=== PATIENT | female | born 1985 | race Caucasian/White ===

== ENCOUNTER → 2017-04-25 | Outpatient (CLI) | payer OTHER ==
[2015-01-08 11:05] VITALS: BP 118/79
[~2017-04-25] MED LIST: DEXT10CA10 PO
--- NOTE | 2017-04-26 07:33 | RAD ---
Right index finger, 04/25/2017: History: Pain No fracture or dislocation is identified. No significant arthritic change is evident. The soft tissues are unremarkable. IMPRESSION: No acute abnormality is detected.
== END | disposition home or self-care (01) ==
LOC: PMG 17:08
PROVIDERS: ATTEND Physician Assistant
DX: M79.644 Pain in right finger(s) (principal)
CPT/HCPCS: 73140

== ENCOUNTER 2018-10-18 00:49 | Emergency (ER) | payer OTHER ==
[2018-10-18] MEDS ORDERED: KETOROLAC 30 MG/ML VIAL. ONE (01:05)
[2018-10-18] MEDS ORDERED: MORPHINE SULFATE 4 MG/ML DISP.SYRIN. ONE (01:05)
[2018-10-18] MEDS ORDERED: ONDANSETRON PF 4 MG/2 ML VIAL. ONE (01:05)
--- NOTE | 2018-10-18 01:08 | PHYS DOC ---
Past History Past Medical History: No Pertinent History Past Surgical History: No Surgical History Smoking: Cigarettes Alcohol Use: Occasionally Drug Use: None Adult General HPI HPI Patient is a 33-year-old female presents with sudden onset left flank pain approximately 90 minutes prior to arrival. Some nausea, no vomiting. No previous history of this. No dysuria or hematuria. No fever. No relief with ibuprofen. Pain is severe. Nothing makes it better or worse.[] Review of Systems Review of Systems Constitutional: Denies fever or chills [] Eyes: Denies change in visual acuity, redness, or eye pain [] HENT: Denies nasal congestion or sore throat [] Respiratory: Denies cough or shortness of breath [] Cardiovascular: No chest pain or palpitations[] GI: See history of present illness, no diarrhea or bloody stools[] : Denies dysuria or hematuria, see history of present illness [] Musculoskeletal: Denies back pain or joint pain [] Integument: Denies rash or skin lesions [] Neurologic: Denies headache, focal weakness or sensory changes [] Endocrine: Denies polyuria or polydipsia [] All other systems were reviewed and found to be within normal limits, except as documented in this note. Current Medications Current Medications Current Medications Medications (Trade) Dose Ordered Sig/Shirley Start Time Stop Time Status Last Admin Dose Admin Ketorolac Tromethamine (Toradol 30mg Vial) 30 mg STK-MED ONCE 10/18/18 01:05 10/18/18 01:05 DC Ondansetron HCl (Zofran) 4 mg STK-MED ONCE 10/18/18 01:05 10/18/18 01:05 DC Allergies Allergies Allergies Coded Allergies Type Severity Reaction Last Updated Verified No Known Drug Allergies 01/08/15 No Physical Exam Physical Exam Constitutional: Well developed, well nourished, moderate discomfort, pacing., non-toxic appearance. [] HENT: Normocephalic, atraumatic, bilateral external ears normal, oropharynx moist, no oral exudates, nose normal. [] Eyes: PERRLA, EOMI, conjunctiva normal, no discharge. [] Neck: Normal range of motion, no tenderness, supple, no stridor. [] Cardiovascular:Heart rate regular rhythm, no murmur [] Lungs & Thorax: Bilateral breath sounds clear to auscultation [] Abdomen: Bowel sounds normal, soft, no tenderness, no masses, no pulsatile masses. [] Skin: Warm, dry, no erythema, no rash. [] Back: No tenderness, no CVA tenderness. [] Extremities: No tenderness, no cyanosis, no clubbing, ROM intact, no edema. [] Neurologic: Alert and oriented X 3, normal motor function, normal sensory fu nction, no focal deficits noted. [] Psychologic: Affect normal, judgement normal, mood normal. [] EKG EKG [] Radiology/Procedures Radiology/Procedures PROCEDURE: CT ABDOMEN PELVIS WO CONTRAST CT abdomen and pelvis without contrast. HISTORY: Flank pain CT scan the abdomen and pelvis was done without contrast. Lung bases are clear. There is no pleural effusion a liver lesion is not identified. Spleen and adrenal glands are normal. Pancreas is normal. There are intrarenal calculi in the left kidney with mild medullary calcinosis. There is also calcification the right kidney and renal calculi. There is right hydronephrosis and hydroureter. There is a 4 mm calculus in the distal right ureter. Bowel pattern is normal. Appendix is normal. There is an intrauterine contraceptive device in good position. Uterus and ovaries are normal. IMPRESSION: 1. Bilateral intrarenal calculi and medullary calcinosis. 2. Right hydronephrosis and hydroureter with 4 x 6 mm distal right ureteral calculus. [] Course & Med Decision Making Course & Med Decision Making Pertinent Labs and Imaging studies reviewed. (See chart for details) ED course: Patient arrived, was placed in bed, in tolerated exam well. IV access was established was given IV fluids as well as IV pain medicine and antiemetics because she had an episode of emesis while in the emergency department. She was transported to and from [place] with any complications. After the return of lab and CT findings, these were discussed with the patient who voiced understanding. All questions were answered. She was discharged in improved condition. Medical decision making: Patient appears to have a kidney stone, we will attempt outpatient treatment. There is no evidence of an infected stone, urinary tract infection, nor renal injury. No evidence of other intra-abdominal pathology at this time.[] Dragon Disclaimer Dragon Disclaimer This electronic medical record was generated, in whole or in part, using a voice recognition dictation system. Departure Departure: Impression: Primary Impression: Kidney stone on right side Disposition: HOME, SELF-CARE Condition: IMPROVED Referrals: GEOVANNA DE LOS SANTOS (PCP) Follow-up in 2 days DAVID BOYD Patient Instructions: Diet for Kidney Stones, Kidney Stones Additional Instructions: Drink plenty of fluids. Follow-up with your regular doctor in 2 days. Take medication as prescribed. Return to the ER if worsening pain, unable to tolerate liquids, or any other concerns. Scripts Tamsulosin Hcl (FLOMAX) 0.4 Mg Cap.er.24h 1 CAP PO DAILY for kidney stone, #10 CAP Prov: JOSE ORDOÑEZ DO 10/18/18 Ondansetron Hcl (ZOFRAN) 4 Mg Tablet 1 TAB PO Q6HRS for nausea or vomiting, #20 TAB Prov: JOSE ORDOÑEZ DO 10/18/18 Hydrocodone Bit/Acetaminophen (NORCO 5-325 TABLET) 1 Each Tablet 1 TAB PO Q4-6HRS for severe pain, #20 TAB Prov: JOSE ORDOÑEZ DO 10/18/18 Meloxicam (MELOXICAM) 7.5 Mg Tablet 7.5 MG PO DAILY for PAIN, #20 TAB Prov: JOSE ORDOÑEZ DO 10/18/18 JOSE ORDOÑEZ DO Oct 18, 2018 01:08
[2018-10-18 01:15] LABS: BASO # 0.1 x10^3/uL (0.0-0.2); BASO % 1 % (0-3); EOS % 0 % (0-3); HEMATOCRIT 39.8 % (36.0-47.0); HEMOGLOBIN 13.6 g/dL (12.0-15.5); LYMPH # 3.9 x10^3/uL (1.0-4.8); LYMPH % 36 % (24-48); MEAN CORPUSCULAR HEMOGLOBIN 32 pg (25-35); MEAN CORPUSCULAR HGB CONC 34 g/dL (31-37); MEAN CORPUSCULAR VOLUME 93 fL (79-100); MONO # 0.9 x10^3/uL (0.0-1.1); MONO % 8 % (0-9); NEUT # 5.9 x10^3uL (1.8-7.7); NEUT % 55 % (31-73); PLATELET COUNT 350 x10^3/uL (140-400); RED CELL DISTRIBUTION WIDTH 13.3 % (11.5-14.5); WHITE BLOOD COUNT 10.8 x10^3/uL (4.0-11.0)
[2018-10-18] MEDS ORDERED: ONDANSETRON PF 4 MG/2 ML VIAL. IV ONE (01:15)
[2018-10-18] MEDS ORDERED: IV NORMAL SALINE 1,000ML 1,000 ML IV ONE (01:15)
[2018-10-18] MEDS ORDERED: MORPHINE SULFATE 4 MG/ML DISP.SYRIN. IV ONE (01:15)
[2018-10-18] MEDS ORDERED: KETOROLAC 15 MG/ML VIAL. IV ONE (01:15)
[2018-10-18 01:24] LABS: BILIRUBIN,URINE NEG (NEG); CLARITY,URINE HAZY; COLOR,URINE YELLOW; GLUCOSE,URINE NEG (NEG); NITRITE,URINE NEG (NEG); RBC,URINE >40 /HPF (0-2); UROBILINOGEN,URINE 0.2 mg/dL (0.2 mg/dL)
[2018-10-18 01:25] LABS: BACTERIA,URINE FEW /HPF (0-FEW); SQUAMOUS EPITHELIAL CELL,UR MOD /LPF
[2018-10-18 01:30] LABS: ALBUMIN 3.9 g/dL (3.4-5.0); ALBUMIN/GLOBULIN RATIO 1.1 (1.0-1.7); CALCIUM 9.1 mg/dL (8.5-10.1); CREATININE 0.9 mg/dL (0.6-1.0); GFR 71.7; POTASSIUM 3.3 mmol/L (3.5-5.1); TOTAL BILIRUBIN 0.5 mg/dL (0.2-1.0); TOTAL PROTEIN 7.3 g/dL (6.4-8.2)
[2018-10-18] MEDS ORDERED: HYDROmorphone PF 1 MG/ML DISP.SYRIN IM ONE (01:45)
[2018-10-18] MEDS ORDERED: HYDROmorphone PF 1 MG/ML DISP.SYRIN IV ONE (02:00)
--- NOTE | 2018-10-18 02:31 | RAD ---
CT abdomen and pelvis without contrast. HISTORY: Flank pain CT scan the abdomen and pelvis was done without contrast. Lung bases are clear. There is no pleural effusion a liver lesion is not identified. Spleen and adrenal glands are normal. Pancreas is normal. There are intrarenal calculi in the left kidney with mild medullary calcinosis. There is also calcification the right kidney and renal calculi. There is right hydronephrosis and hydroureter. There is a 4 mm calculus in the distal right ureter. Bowel pattern is normal. Appendix is normal. There is an intrauterine contraceptive device in good position. Uterus and ovaries are normal. IMPRESSION: 1. Bilateral intrarenal calculi and medullary calcinosis. 2. Right hydronephrosis and hydroureter with 4 x 6 mm distal right ureteral calculus. RS Compliance Statement: One or more of the following individualized dose reduction techniques were utilized for this examination: 1. Automated exposure control 2. Adjustment of the mA and/or kV according to patient size 3. Use of iterative reconstruction technique Electronically signed by: Douglas Hudson MD (10/18/2018 2:28 AM) [id number]
[2018-10-18 03:09] VITALS: BP 119/74
[2018-10-18] MEDS ORDERED: MELO7.5T29 PO (03:09)
[2018-10-18] MEDS ORDERED: HYDR-3165 PO (03:09)
[2018-10-18] MEDS ORDERED: TAMS0.4C97 PO (03:09)
[2018-10-18] MEDS ORDERED: ONDA4TAB7 PO (03:09)
== END 2018-10-18 03:20 | disposition home or self-care (01) ==
LOC: ER 00:49
DX: N13.2 Hydronephrosis with renal and ureteral calculous obstruction (principal); F17.210 Nicotine dependence, cigarettes, uncomplicated
CPT/HCPCS: 36415; 74176; 80053; 81001; 81025; 83690; 85025; 96374; 96375; 99285; J1170; J1885; J2270; J2405; J7030